=== PATIENT | female | born 1985 | race Caucasian/White ===

== ENCOUNTER 2017-05-08 06:42 | Day surgery (SDC) | payer OTHER ==
[~2017-05-08 06:42] MED LIST: ATIVAN0.5 MG
[2017-05-08] MEDS ORDERED: DOXYCYCLINE HY100 MG PO (10:33)
[2017-05-08] MEDS ORDERED: CODE1TAB37 PO (10:33)
== END 2017-05-08 17:25 | disposition home or self-care (01) ==
LOC: CIR.AMB 06:42
DX: N84.0 Polyp of corpus uteri (principal); N92.0 Excessive and frequent menstruation with regular cycle